=== PATIENT | female | born 1945 | race Caucasian/White ===

== ENCOUNTER → 2021-10-08 10:59 | Outpatient (CLI) | payer MEDICARE, SELFPAY ==
--- NOTE | 2021-10-08 11:06 | DI.CT.S_ITS ---
PROCEDURE: CT CERVICAL SPINE WO CON INDICATIONS: Ankylosing hyperostosis [[place]], site unspecif TECHNIQUE: Noncontrast 3 mm thick sections acquired from the skull base to the T4 level. Sagittal and coronal reformats were then constructed. For radiation dose reduction, the following was used: automated exposure control, adjustment of mA and/or kV according to patient size. COMPARISON: Outside Facility, RG, CT CERVICAL SPINE, 07/17/2021, 14:16. FINDINGS: Image quality: Excellent. Bones: Subacute appearing fracture involving anterior arch of C1 is seen with up to 3.7 millimeter diastasis at fracture site. There is also a subacute appearing fracture through base of dense with up to 3 mm diastasis at fracture site. Grade 1 anterolisthesis of C3 on C4 and C4 on C5 is again seen. Minimal retrolisthesis of C5 on C6 is also noted. Loss of disc height and degenerative endplate changes are noted throughout cervical spine more prominent at C5-6 and C6-7 levels with prominent dorsal disc osteophyte complex formation causing [id number] central canal stenosis and mild bilateral neural foraminal narrowing. Bilateral facet hypertrophic changes also noted throughout cervical spine. Osteoarthritic changes are noted involving dens and anterior arch of C1 . No suspicious bony lesion. Visualized superior ribs are intact. Soft tissues: Prevertebral soft tissues are normal in thickness. Significant soft tissue over dorsal aspect of odontoid fracture site is seen causing moderate central canal stenosis at this level. No paravertebral hematomas. No apical pneumothoraces. IMPRESSION: 1. Subacute appearing fractures involving base of odontoid process as well as anterior arch of C1 as described above. No other fracture or dislocation. 2. Grade 1 anterolisthesis at C3-4 and C4-5 levels and minimal retrolisthesis at C5-6 level. 3. Degenerative disc disease throughout cervical spine more prominent at C5-6 and C6-7 levels as above please correlate with MRI of cervical spine findings. Dictated by: Kemar Randhaaw M.D. on 10/08/2021 at 14:02 Approved by: Kemar Randhawa M.D. on 10/08/2021 at 14:21
--- NOTE | 2021-10-08 11:06 | DI.MRI.S_ITS ---
PROCEDURE: MR CERVICAL SPINE WO CON INDICATIONS: Ankylosing hyperostosis [[place]], site unspecif TECHNIQUE: Noncontrast sagittal T1 spin echo and T2 fast spin echo, sagittal STIR, foraminal oblique sagittal T2 fast spin echo, and axial gradient echo or T2 fast spin echo through the cervical spine. COMPARISON: [facility], CT, CT CERVICAL SPINE WO CON, 10/08/2021, 11:15. FINDINGS: Image quality: Excellent. Alignment and Curvature: There is loss of normal cervical lordosis. Mild grade 1 anterolisthesis of C3 on C4 and C4 on C5. Mild grade 1 retrolisthesis of C5 on C6 and C6 on C7. Bone Marrow: Marrow demonstrates normal overall signal. There is moderate reactive signal within the endplates adjacent to the C5-C6 and C6-C7 intervertebral discs. Mild reactive signal adjacent to the remaining cervical and upper thoracic endplates. Ununited fracture of the odontoid process of C2 is present with moderate adjacent marrow edema within the C2 process. Spinal Cord: Visualized spinal cord has normal size and signal. No cerebellar tonsillar herniation. Paraspinous Soft Tissues: No paravertebral masses. Prevertebral soft tissues are normal in thickness. There is elevated T2 and low T2 signal intensity within the prevertebral soft tissues at the C1-C2 level secondary to inflammatory sequelae from the ununited C2 fracture. C1-C2: Ununited fracture with surrounding inflammatory changes spanning roughly 10 mm anteroposterior. There is associated moderate canal stenosis at this level. C2-C3: Mild disc height loss. Moderate disc desiccation. Mild diffuse disc bulge. Congenital canal stenosis. Mild facet and uncovertebral hypertrophy bilaterally. Moderate canal stenosis. Mild bilateral foraminal stenosis. C3-C4: Moderate disc desiccation. Mild disc height loss and diffuse disc bulge. Moderate left and mild right facet and uncovertebral hypertrophy. Moderate canal stenosis. Severe left and mild right foraminal stenosis. Left C4 nerve root compression. C4-C5: Moderate disc desiccation. Mild disc height loss. Moderate left and mild right facet and uncovertebral hypertrophy. Moderate canal stenosis. Severe left and mild right foraminal stenosis. Left C5 nerve root compression. C5-C6: Severe disc height loss and desiccation. Moderate diffuse disc bulge/osteophyte. Congenital canal stenosis. Moderate facet and uncovertebral hypertrophy bilaterally. Severe canal stenosis. Mild cord flattening. Severe bilateral foraminal stenosis with bilateral C6 nerve root compression. C6-C7: Moderate disc height loss and desiccation. Moderate diffuse disc bulge. Congenital canal stenosis. Moderate facet and uncovertebral hypertrophy bilaterally. Severe canal stenosis. Moderate cord flattening. Severe bilateral foraminal stenosis with bilateral C7 nerve root compression. C7-T1: Moderate disc height loss and desiccation. Mild facet and uncovertebral hypertrophy bilaterally. Mild canal stenosis. Mild bilateral foraminal stenosis. IMPRESSION: 1. Odontoid fracture with surrounding soft tissue edema/inflammation, causing moderate canal stenosis. 2. Multilevel degenerative disc and facet disease, as well as uncovertebral hypertrophy, superimposed on diffuse congenital canal stenosis. 3. Multilevel canal stenoses, worst at C5-C6 and C6-C7, where there is cord flattening present. 4. Multilevel foraminal stenoses, worst at C3-C4, C4-C5, C5-C6, and C6-C7, where there is associated intraforaminal nerve root compression. Recommend correlation with clinical symptoms to ascertain relevance of these findings. Dictated by: Wayne Cifuentes M.D. on 10/08/2021 at 13:49 Approved by: Wayne Cifuentes M.D. on 10/08/2021 at 13:57
== END ==
PROVIDERS: PCP Student in an Organized Health Care Education/Training Program; Referring Provider Physician Assistant; Visit Provider Physician Assistant
DX: S12.090K Other displaced fracture of first cervical vertebra, subsequent encounter for fracture with nonunion (principal); S12.120K Other displaced dens fracture, subsequent encounter for fracture with nonunion; M48.10 Ankylosing hyperostosis [Forestier], site unspecified; M43.12 Spondylolisthesis, cervical region; M50.322 Other cervical disc degeneration at C5-C6 level; M48.02 Spinal stenosis, cervical region
CPT/HCPCS: 72125; 72141